=== PATIENT | male | born 1965 | race Caucasian/White ===

== ENCOUNTER 2017-03-19 18:02 | Emergency (ER) | payer BC, OTHER ==
[~2017-03-19] VITALS: Ht 167.6 cm; Wt 93.0 kg
[~2017-03-19 18:02] MED LIST: NAPR-243 PO; TRM50T PO
--- OUTSIDE RECORDS SUMMARY | 2017-03-19 18:08 | XMS REPORT ---
Author Author GUERITA PULLIAM [facility] eClinicalWorks Address Unknown Phone Unavailable Care Team Providers Care Meter Technician Name Role Phone GUERITA PULLIAM Unavailable Allergies No Known Allergies Problems Problem Type Condition Code Onset Dates Condition Status Problem Encounter to establish care with new doctor Z71.89 Active Problem Acute bronchitis 466.0 Active Problem Morbid obesity due to excess calories E66.01 Active Assessment Hyperlipidemia, unspecified hyperlipidemia type E78.5 Active Medications No Known Medications Procedures Procedure Coding System Code Date GLYCATED HEMOGLOBIN TEST CPT-4 15865 Jan 30, 2016 VENIPUNCT, ROUTINE* CPT-4 78784 Jan 30, 2016 ACUTE HEPATITIS PANEL CPT-4 43557 Jan 30, 2016 Results No Known Results Summary Purpose eClinicalWorks Submission
--- OUTSIDE RECORDS SUMMARY | 2017-03-19 18:08 | XMS REPORT ---
Author Author GUERITA PULLIAM [facility] eClinicalWorks Address Unknown Phone Unavailable Care Team Providers Care Energy Trader Name Role Phone GUERITA PULLIAM Unavailable Allergies No Known Allergies Problems Problem Type Condition Code Onset Dates Condition Status Problem Encounter to establish care with new doctor Z71.89 Active Problem Acute bronchitis 466.0 Active Problem Morbid obesity due to excess calories E66.01 Active Assessment Hyperlipidemia, unspecified hyperlipidemia type E78.5 Active Medications Medication Code System Code Instructions Start Date End Date Status Dosage Atorvastatin Calcium [facility] [address]-52 10 mg Orally Once a day Jan 30, 2016 1 tablet Results No Known Results Summary Purpose eClinicalWorks Submission
--- OUTSIDE RECORDS SUMMARY | 2017-03-19 18:08 | XMS REPORT ---
Author GUERITA Lopez [facility] eClinicalWorks Address Unknown Phone Unavailable Care Team Providers Care Joint Machine Operator Name Role Phone GUERITA PULLIAM CP Unavailable Allergies, Adverse Reactions, Alerts Substance Reaction Event Type N.K.D.A. Info Not Available Non Drug Allergy Problems Problem Type Condition Code Onset Dates Condition Status Problem Encounter to establish care with new doctor Z71.89 Active Problem Acute bronchitis 466.0 Active Problem Morbid obesity due to excess calories E66.01 Active Assessment Morbid obesity due to excess calories E66.01 Active Assessment Encounter to establish care with new doctor Z71.89 Active Medications Medication Code System Code Instructions Start Date End Date Status Dosage Naltrexone-Bupropion HCl ER [facility] [address]-16 8-90 MG Orally Twice a day January 09, 2016 Feb 08, 2016 2 tablets Procedures Procedure Coding System Code Date Office Visit, Est Pt., Level 3 CPT-4 44573 January 09, 2016 Vital Signs Date/Time: January 09, 2016 Cardiac Monitoring Heart Rate 80 bpm Weight 233.9 lbs Height 67 in Blood Pressure Diastolic 92 mmHg Blood Pressure Systolic 122 mmHg Results No Known Results Summary Purpose eClinicalWorks Submission
[2017-03-19] MEDS ORDERED: METF500T4 (19:04)
[2017-03-19] MEDS ORDERED: PIOG30TA26 (19:04)
[2017-03-19 19:44] LABS: BASOPHILS % (AUTO) 0 % (0-10); EOSINOPHILS % (AUTO) 0 % (0-10); LYMPHOCYTES # (AUTO) 1.4 X 10^3 (1.0-4.0); LYMPHOCYTES % (AUTO) 21 % (12-44); MEAN CORPUSCULAR HEMOGLOBIN 30 PG (25-34); MEAN CORPUSCULAR HGB CONC 35 G/DL (32-36); MEAN CORPUSCULAR VOLUME 86 FL (80-99); MEAN PLATELET VOLUME 12.7 FL (7.4-10.4); MONOCYTES # (AUTO) 0.6 X 10^3 (0.0-1.0); MONOCYTES % (AUTO) 10 % (0-12); NEUTROPHILS # (AUTO) 4.4 X 10^3 (1.8-7.8); NEUTROPHILS % (AUTO) 68 % (42-75); PLATELET COUNT 220 10^3/uL (130-400); RED BLOOD COUNT 5.31 10^6/uL (4.35-5.85); RED CELL DISTRIBUTION WIDTH 12.2 % (10.0-14.5); WHITE BLOOD COUNT 6.4 10^3/uL (4.3-11.0)
[2017-03-19 19:55] LABS: ALBUMIN 4.2 GM/DL (3.2-4.5); BILIRUBIN,TOTAL 0.6 MG/DL (0.1-1.0); CREATININE SERUM 1.61 MG/DL (0.60-1.30); MAGNESIUM 1.9 MG/DL (1.8-2.4); POTASSIUM 4.2 MMOL/L (3.6-5.0); TOTAL PROTEIN 7.1 GM/DL (6.4-8.2)
[2017-03-19] MEDS ORDERED: NS IV 1000 ML 1,000 ML IV ONE ×2 (20:51→21:21)
[2017-03-19] MEDS ORDERED: ONDANSETRON 4 MG/2 ML (SDV) Z0FRAN IVP ONE (21:00)
[2017-03-19] MEDS ORDERED: FAMOTIDINE 20MG/2ML IV (PEPCID) IVP ONE (21:00)
[2017-03-19] MEDS ORDERED: inSUlin (REGULAR) HUMAN 1 UNIT/0.01 ML (CHARGE PER UNIT) SC ONE (21:00)
--- NOTE | 2017-03-19 21:37 | Diagnostic Imaging Report ---
INDICATION: Abdominal pain COMPARISON: None FINDINGS: Two views of the abdomen demonstrate moderate constipation without obstruction or ileus. There is no large pocket of free air. No abnormal calcification. IMPRESSION: Constipation without obstruction. Dictated by: Dictated on workstation # [id number]
[2017-03-19 21:52] LABS: BILIRUBIN,URINE NEGATIVE (NEGATIVE); KETONES,URINE 4+ (NEGATIVE); LEUKOCYTE ESTERASE ,URINE NEGATIVE (NEGATIVE); NITRITE,URINE NEGATIVE (NEGATIVE); PH,URINE 5 (5-9); PROTEIN,URINE 2+ (NEGATIVE); UROBILINOGEN,URINE NORMAL (NORMAL)
[2017-03-19] MEDS ORDERED: RX-ONDANSETRON 4 MG ODT (ZOFRAN) PPK #4 SL STA (22:56)
--- NOTE | 2017-03-19 22:56 | ED General ---
General Chief Complaint: Glucose Problems Stated Complaint: DIABETIC/ELEV BS/LETHARGIC Nursing Triage Note: Pt reports high blood sugars for past couple months and has been on oral medications for glucose. Pt reports he continues to get worse and is now lethargic and does not feel like eating. Family reports pt has lost 30lbs over past month. Nursing Sepsis Screen: No Definite Risk Source of Information: Patient Exam Limitations: No Limitations History of Present Illness Time Seen by Provider: 21:10 Initial Comments This 51-year-old gentleman presents to the emergency room with complaints of high blood sugar, feeling dizzy, blurry vision, vomiting, persistent belching, and constipation. He was recently diagnosed with diabetes and started on oral medications including metformin and Actos. His provider felt he had an inner ear issue at the same time and also prescribed prednisone. His feelings of dizziness have been present for about 2 months and he describes this as a mild disequilibrium. Recently he has been "gagging up phlegm "and he has a chronic unchanged cough. Today he actually vomited. His last bowel movement was about one week ago. He denies any tobacco use. He has been drinking some sugary sports drinks recently. Allergies and Home Medications Allergies Coded Allergies: No Known Drug Allergies (Unverified , 08/05/12) Home Medications Metformin HCl 500 Mg Tablet, (Reported) Pioglitazone HCl 30 Mg Tablet, (Reported) Constitutional: see HPI, No fever EENTM: see HPI Respiratory: see HPI Cardiovascular: no symptoms reported Gastrointestinal: see HPI Genitourinary: frequency Musculoskeletal: no symptoms reported Skin: no symptoms reported Psychiatric/Neurological: See HPI Hematologic/Lymphatic: No Symptoms Reported Immunological/Allergic: no symptoms reported Past Bflhmlr-Begxth-Chdbit Hx Patient Social History Alcohol Use: Rarely Uses Recreational Drug Use: No Smoking Status: Never a Smoker Recent Foreign Travel: No Contact w/Someone Who Travel: No Recent Infectious Disease Expo: No Recent Hopitalizations: No Immunizations Up To Date Tetanus Booster (TDap): Less than 5yrs Seasonal Allergies Seasonal Allergies: No Surgeries History of Surgeries: Yes Surgeries: Adenoidectomy, Tonsillectomy Respiratory History of Respiratory Disorde: Yes (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, 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) Cardiovascular History of Cardiac Disorders: No Neurological History of Neurological Disord: No Reproductive System Hx Reproductive Disorders: No Sexually Transmitted Disease: No Genitourinary History of Genitourinary Disor: Yes Genitourinary Disorders: Kidney Stones Gastrointestinal History of Gastrointestinal Di: No Musculoskeletal History of Musculoskeletal Dis: Yes Musculoskeletal Disorders: Chronic Back Pain Endocrine History of Endocrine Disorders: Yes Endocrine Disorders: Diabetes, Non-Insulin dep HEENT History of HEENT Disorders: No Cancer History of Cancer: No Psychosocial History of Psychiatric Problem: No Integumentary History of Skin or Integumenta: No Blood Transfusions History of Blood Disorders: No Physical Exam Vital Signs Vital Sign - Last 12Hours 03/19/17 18:48 Temp 98.4 Pulse 95 Resp 18 B/P (MAP) 126/83 Pulse Ox 94 O2 Delivery Room Air Capillary Refill : Less Than 3 Seconds General Appearance: No Apparent Distress, WD/WN HEENT: PERRL/EOMI, Normal ENT Inspection, Other (oropharynx dry) Neck: Normal Inspection Respiratory: Lungs Clear, Normal Breath Sounds, No Accessory Muscle Use, No Respiratory Distress Cardiovascular: Regular Rate, Rhythm, No Edema, No Murmur Gastrointestinal: Normal Bowel Sounds, Soft, Tenderness (mild epigastric) Extremity: Normal Inspection, No Pedal Edema Neurologic/Psychiatric: Alert, Oriented x3, No Motor/Sensory Deficits, Normal 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/Affect, 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 Norm as Tested Skin: Normal Color, Warm/Dry Progress/Results/Core Measures Results/Orders Lab Results Laboratory Tests Test 03/19/17 18:53 03/19/17 19:09 03/19/17 21:45 03/19/17 22:19 Range/Units Glucometer 414 *H 307 H 70-110 MG/DL White Blood Count 6.4 4.3-11.0 10^3/uL Red Blood Count 5.31 4.35-5.85 10^6/uL Hemoglobin 16.0 13.3-17.7 G/DL Hematocrit 45 40-54 % Mean Corpuscular Volume 86 80-99 FL Mean Corpuscular Hemoglobin 30 25-34 PG Mean Corpuscular Hemoglobin Concent 35 32-36 G/DL Red Cell Distribution Width 12.2 10.0-14.5 % Platelet Count 220 130-400 10^3/uL Mean Platelet Volume 12.7 H 7.4-10.4 FL Neutrophils (%) (Auto) 68 42-75 % Lymphocytes (%) (Auto) 21 12-44 % Monocytes (%) (Auto) 10 0-12 % Eosinophils (%) (Auto) 0 0-10 % Basophils (%) (Auto) 0 0-10 % Neutrophils # (Auto) 4.4 1.8-7.8 X 10^3 Lymphocytes # (Auto) 1.4 1.0-4.0 X 10^3 Monocytes # (Auto) 0.6 0.0-1.0 X 10^3 Eosinophils # (Auto) 0.0 0.0-0.3 10^3/uL Basophils # (Auto) 0.0 0.0-0.1 10^3/uL Sodium Level 132 L 135-145 MMOL/L Potassium Level 4.2 3.6-5.0 MMOL/L Chloride Level 98 98-107 MMOL/L Carbon Dioxide Level 12 L 21-32 MMOL/L Anion Gap 22 H 5-14 MMOL/L Blood Urea Nitrogen 21 H 7-18 MG/DL Creatinine 1.61 H 0.60-1.30 MG/DL Estimat Glomerular Filtration Rate 45 BUN/Creatinine Ratio 13 Glucose Level 473 *H 70-105 MG/DL Calcium Level 10.0 8.5-10.1 MG/DL Magnesium Level 1.9 1.8-2.4 MG/DL Total Bilirubin 0.6 0.1-1.0 MG/DL Aspartate Amino Transf (AST/SGOT) 21 5-34 U/L Alanine Aminotransferase (ALT/SGPT) 56 H 0-55 U/L Alkaline Phosphatase 69 40-136 U/L Total Protein 7.1 6.4-8.2 GM/DL Albumin 4.2 3.2-4.5 GM/DL TSH [place] Testing 1.12 0.35-4.94 UIU/ML Urine Color YELLOW Urine Clarity CLEAR Urine pH 5 5-9 Urine Specific [place] 1.025 H 1.016-1.022 Urine Protein 2+ H NEGATIVE Urine Glucose (UA) 4+ H NEGATIVE Urine Ketones 4+ H NEGATIVE Urine Nitrite NEGATIVE NEGATIVE Urine Bilirubin NEGATIVE NEGATIVE Urine Urobilinogen NORMAL NORMAL MG/DL Urine Leukocyte Esterase NEGATIVE NEGATIVE Urine RBC (Auto) 1+ H NEGATIVE Urine RBC 0-2 /HPF Urine WBC NONE /HPF Urine Crystals NONE /LPF Urine Bacteria NONE /HPF Urine Casts NONE /LPF Urine Mucus NEGATIVE /LPF Urine Culture Indicated NO My Orders Orders - GRICELDA MOJICA MD Cbc With Automated Diff (03/19/17 19:38) Comprehensive Metabolic Panel (03/19/17 19:38) Magnesium (03/19/17 19:38) Ua Culture If Indicated (03/19/17 19:38) Accucheck Stat ONCE (03/19/17 19:38) Saline Lock/Iv-Start (03/19/17 19:38) Thyroid Analyzer (03/19/17 19:40) Ondansetron Injection (Zofran Injectio (03/19/17 21:00) Famotidine Injection (Pepcid Injection) (03/19/17 21:00) Ns Iv 1000 Ml (Sodium Chloride 0.9%) (03/19/17 20:51) Insulin (Regular) Human (Humulin R (Per (03/19/17 21:00) Ns Iv 1000 Ml (Sodium Chloride 0.9%) (03/19/17 21:21) Accucheck Stat ONCE (03/19/17 21:21) Abdomen/Kub 1view (03/19/17 21:21) Rx-Ondansetron Po (Rx-Zofran Po) (03/19/17 22:56) Medications Given in ED Vital Signs/I&O Blood Pressure Mean: 97 Point of Care Testing Finger Stick Blood Glucose: 307 Blood Glucose Action Taken: physician and rn notified Progress Note : Progress Note Patient was felt to be dry on exam. He was given 2 L of IV fluids and 5 units of insulin. Blood sugar was trending down. Patient was feeling improved after the IV hydration. I suspect that the prednisone prescription exacerbated his hyperglycemia causing him to diuresis and become hypovolemic. This would explain his feelings of dizziness and his blurry vision. Patient was found to have constipation on his abdominal x-ray. They have MiraLAX at home and he was advised to use this to help reduce bowel movements. I also wrote a prescription for a glucometer and test strips. He is advised to check his blood sugars fasting and 2 hours after meals. Diagnostic Imaging Diagonstic Imaging: Xray Plain Films/CT/US/NM/MRI: abdomen Comments NAME: JEFFREY CESAR MED REC#: [id number] PT STATUS: REG ER : 1965 PHYSICIAN: GRICELDA MOJICA MD ADMIT DATE: 03/19/17/ER Signed Date of Exam: 03/19/17 ABDOMEN/KUB 1VIEW INDICATION: Abdominal pain COMPARISON: None FINDINGS: Two views of the abdomen demonstrate moderate constipation without obstruction or ileus. There is no large pocket of free air. No abnormal calcification. IMPRESSION: Constipation without obstruction. Dictated by: Dictated on workstation # [id number] Dict: 03/19/172132 Trans: 03/19/172148 Interpreted by: DARCIE DAWN Electronically signed by: DARCIE DAWN 03/19/172148 Departure Impression Impression: Primary Impression: Hyperglycemia Additional Impressions: Hypovolemia Diabetes type 2, uncontrolled Qualified Codes: E11.65 - Type 2 diabetes mellitus with hyperglycemia Nausea and vomiting Qualified Codes: R11.2 - Nausea with vomiting, unspecified Constipation Qualified Codes: K59.00 - Constipation, unspecified Blurry vision Renal insufficiency Disposition: HOME, SELF-CARE Condition: Improved Departure-Patient Inst. Decision time for Depature: 22:40 Referrals: [facility] (PCP/Family) Primary Care Physician Patient Instructions: Diabetes Type 2 (DC) Add. Discharge Instructions: Drink plenty of sugar-free clear liquids. Eat a diet low in carbohydrates and sugars. Check your blood sugars when you wake up in the morning and 2 hours after meals whenever possible. Continue to take your medications as prescribed. You may use the Zofran (ondansetron) dissolved under your tongue every 4 hours as needed for nausea and vomiting. Follow-up with your primary care provider as soon as possible. Use MiraLAX (polyethylene glycol) one twice daily as needed for constipation. All discharge instructions reviewed with patient and/or family. Voiced understanding. Copy Copies To 1: ISIAH MUÑOZ JOSHUA T MD Mar 19, 2017 22:55
[2017-03-19 23:42] VITALS: BP 126/83
== END 2017-03-19 23:42 | disposition home or self-care (01) ==
LOC: EDUNIT# 18:02 → ER 18:05
DX: E11.65 Type 2 diabetes mellitus with hyperglycemia (principal); K59.00 Constipation, unspecified; R11.2 Nausea with vomiting, unspecified; H53.8 Other visual disturbances; E86.1 Hypovolemia; N28.9 Disorder of kidney and ureter, unspecified; Z87.442 Personal history of urinary calculi; Z90.89 Acquired absence of other organs
CPT/HCPCS: 36415; 74000; 80053; 81000; 82962; 83735; 84443; 85025; 96361; 96372; 96374; 96375